=== PATIENT | male | born 1950 | race Caucasian/White ===

== ENCOUNTER → 2017-06-27 | Outpatient (CLI) | payer BC ==
[~2017-06-27] MED LIST: AMB5 PO; EZET10TA63 PO; LEVO25TA PO; LPT/40 PO; NXM/40 PO; RANI300T2 PO; SERT50TA PO; TRIA0.5C9 TOP; multvitamin PO
[2017-06-27 17:30] LABS: BASO % 0.5 %; BASO ABS # 0.03 K/uL (0-0.2); EOS % 1.6 %; EOS ABS # 0.09 K/uL (0-0.5); HEMATOCRIT 43.9 % (42-52); HEMOGLOBIN 15.1 g/dL (14.0-18.0); IG# 0.01 K/uL (0.00-0.02); LYMPH % 32.7 %; LYMPH ABS # 1.86 K/uL (1.2-3.4); MEAN CORPUSCULAR HGB CONC 34.4 g/dl (32-36); MEAN PLATELET VOLUME 9.8 fL (7.4-10.4); MONO % 8.8 %; NEUT % 56.2 %; NEUT ABS # 3.19 K/uL (1.4-6.5); PLATELET COUNT 190 K/uL (130-400); RED CELL DISTRIBUTION WIDTH CV 13.1 % (11.5-14.5); RED CELL DISTRIBUTION WIDTH SD 44.8 fL (36.4-46.3); WHITE BLOOD COUNT 5.68 K/uL (4.8-10.8)
[2017-06-27 17:47] LABS: ALT/SGPT 47 U/L (12-78); AST/SGOT 24 U/L (15-37); BLOOD UREA NITROGEN 15 mg/dl (7-18); CALCIUM 9.2 mg/dl (8.5-10.1); CARBON DIOXIDE 28 mmol/L (21-32); CREATININE 1.19 mg/dl (0.60-1.40); GLUCOSE 114 mg/dl (70-99); POTASSIUM 4.6 mmol/L (3.5-5.1); SODIUM 138 mmol/L (136-145)
[2017-06-27 17:58] LABS: ALKALINE PHOSPHATASE 81 U/L (45-117); CHOLESTEROL 133 mg/dl (0-200); LDL CHOLESTEROL CALCULATED 43 mg/dl; TOTAL PROTEIN 7.6 gm/dl (6.4-8.2)
== END | disposition home or self-care (01) ==
LOC: C.LABPBG 11:31
PROVIDERS: ATTEND Neuromusculoskeletal Medicine & OMM
DX: Z00.00 Encounter for general adult medical examination without abnormal findings (principal); E78.00 Pure hypercholesterolemia, unspecified; E03.9 Hypothyroidism, unspecified; I10 Essential (primary) hypertension

== ENCOUNTER → 2017-07-04 | Outpatient (CLI) | payer BC ==
--- NOTE | 2017-07-04 13:13 | DIAGNOSTIC IMAGING REPORT ---
RIGHT SHOULDER 3 VIEWS HISTORY: M25.511 Chronic right shoulder pain [id number] COMPARISON: None. FINDINGS: There is no fracture or dislocation. Soft tissues are unremarkable. The right clavicle is intact. IMPRESSION: No fracture or dislocation within the right shoulder. Electronically signed by: Isael Garcia M.D. 07/04/2017 1:12 PM Dictated Date/Time: 07/04/2017 1:11 PM
[2017-07-05 06:58] LABS: HEMOGLOBIN A1C 6.5 % (4.5-5.6)
== END | disposition home or self-care (01) ==
LOC: C.RADBC 12:52
PROVIDERS: ATTEND Neuromusculoskeletal Medicine & OMM
DX: M25.511 Pain in right shoulder (principal); N40.1 Benign prostatic hyperplasia with lower urinary tract symptoms; R73.09 Other abnormal glucose; E66.9 Obesity, unspecified

== ENCOUNTER 2021-02-08 20:56 | Inpatient (IN) ==
[2021-02-08] MEDS ORDERED: fentaNYL citrate 100 MCG/2 ML VIAL IV STA ×2 (21:46→23:31)
[2021-02-08] MEDS ORDERED: fentaNYL citrate 100 MCG/2 ML VIAL ONE (21:47)
[2021-02-08] MEDS ORDERED: OPTIRAY 320 100ml IV ONE (21:55)
--- NOTE | 2021-02-08 22:02 | Emergency Department Note ---
Impression & Plan Fall from ladder, Laceration of scalp, Acetabulum fracture, left, Closed pelvic fracture ED Provider Note Provider: Doroteo Rasmussen MD DATE OF SERVICE: 02/08/2021 CHIEF COMPLAINT: Fall HISTORY OF PRESENT ILLNESS: Patient is a 70-year-old gentleman history of hypothyroidism, diabetes, hypertension presenting today after a fall from a ladder. Patient states he was approximately 4-5 steps up on a ladder pulling out a nail in [place] when he suddenly and the nail pull out and he fell over onto his left side onto a rock on the ground. Denies LOC do think he might have been stunned for second. Was able to stand with some assistance was unable to walk. Complaining significant left hip pain and groin pain. Patient notes a cut to the side of his head. Denies severe headache. Denies dizziness or visual changes. Denies significant neck pain or numbness in extremities. Denies chest pain or shortness of breath. Denies nausea or vomiting. Patient states he has pain anytime he moves his left leg in the hip and groin region. Brought here by EMS. States tetanus up-to-date in the last 10 years. REVIEW OF SYSTEMS: A total of 10 review of systems was obtained and negative except as stated above in the HPI. PAST MEDICAL HISTORY: As noted above MEDICATIONS: Reviewed home medications does not include any anticoagulants or antiplatelet agents SOCIAL HISTORY: Lives at home with PHYSICAL EXAM: GENERAL: alert and oriented laying on the Ruth on his right side with some dried blood in his scalp Head: Patient with an approximately 3.5 centimeter laceration in the left temporoparietal region with no signs of foreign body. Linear in nature. No active bleeding noted. No ashton sign noted. EYES: No injection, discharge or icterus. PERRL NECK: Trachea midline. Supple. ENT: Mucous membranes pink and moist. LUNGS: Airway patent. No retractions. Breath sounds clear HEART: Regular rate and rhythm. No chest wall tenderness ABDOMEN: Soft with some tenderness in the left inguinal region. Not peritoneal. No significant bruising noted across the abdomen. SKIN: Acyanotic, warm, dry, without rashes EXTREMITIES: Without swelling, tenderness or deformity except for pain with any movement of the left hip. Minimal left trochanteric tenderness. NEUROLOGICAL: No focal deficits. No aphasia. No facial droop or slurred speech. Normal strength and tone in the extremities except limited in LLE 2/2 pain in L hip region. Sensation to gross touch normal in the upper and lower extremities. EK bpm normal sinus rhythm. No PVC or PAC. No acute ST segment elevation or depression. QTC 416. CONTINUOUS CARDIAC MONITORING: was ordered and showed a heart rate of 60-70s bpm in normal sinus rhythm 2 view left hip x-ray with 1 view pelvis x-ray: Per my interpretation no evidence of acute dislocation or obvious fracture of the left femur. Question of a possible left superior pelvic rami fracture. PDMP was checked without noted issue. GCS 15. LACERATION REPAIR: Performed by myself Patient, procedure, and site were verified immediately before the procedure. Appropriate neurovascular exam was performed to test sensation, motor function and perfusion. The skin around the wound was prepped with Betadine. Wound was irrigated with a copious amount of saline Wound was explored to its base. There was no visible foreign body in the wound. The laceration was repaired by means of a single layer closure. Skin was closed with aarti #7 Total wound length was 3.5 cm. Good hemostasis and cosmetic result. Patient tolerated the procedure well. Patient's laboratory studies and imaging reviewed. Differential includes Fracture, dislocation, contusion, intra-abdominal, pneumothorax, intrathoracic, intracranial, neurologic, compartment syndrome, rhabdomyolysis, as well as other pathologies. IMPRESSION/MEDICAL DECISION MAKING: Patient with a laceration to the left temporoparietal region. States his tetanus is up-to-date. Irrigated with saline after some Betadine. Patient required aarti to close this wound and no evidence of foreign body. Patient with significant pain to left hip and groin. Given some fentanyl for pain. Patient was taken off of the Ruth. Patient sent for CT scans given mechanism. X-ray of the pelvis and hip obtained without obvious hip fracture noted per my interpretation. Basic blood work obtained without significant abnormality. Given significant pain a CT of the hip was obtained as well. Stat read reads as below. Patient urinated here without evidence of blood and I doubt acute bladder injury given this. Patient given additional fentanyl for pain and later morphine. Scalp laceration closed as above. CT the head, cervical spine, and chest without significant findings. CT abdomen and pelvis and CT of the L hip show evidence of acetabular fracture with pelvic fractures. Some small associated hematoma in this area. Patient is urinated without issue and has no blood noted in the sample from thi s. Discussed with Dr. Neil of orthopedics (patient requested Dr. Fischer's group) regarding the findings. Patient is neurovascular intact in the left lower extremity. Patient does not show evidence of shock at this time. The orthopedist reviewed the images and believe nonoperative management would be appropriate here. Patient to be nonweightbearing on the left leg at this time. Patient may recover in 6 to 8 weeks. PT and OT evaluations and orthopedic consultation can be obtained while observed here. Given his pain control and limited mobility at this time believe the patient does require admission. Discussed with the hospitalist team. Serial H&H's can be followed. DIAGNOSIS: Left acetabular fracture, pelvic fracture, fall, scalp laceration DISPOSITION: Hospitalist will evaluate Patient was agreeable with this plan. Preliminary Findings Only See Final Report For Complete Findings CT LEFT HIP: Mildly displaced acute comminuted fracture of the anterior, superior and medial left acetabulum with extension to the lateral aspect of the left superior pubic ramus. Associated fracture of the left inferior pubic ramus. Fracture of the anterior margin of the left sacral ally adjacent to but not involving the sacroiliac joint. The left femur is intact. No dislocation. Infiltration/hemorrhage associated with the fractures including left pelvic sidewall hemorrhage extending into the lower pelvis. Hemorrhage is adjacent to the urinary bladder which is otherwise unremarkable. Radiologist: Mendel Ortiz M.D. Study ready at 22:54 and initial results transmitted at 23:06 Preliminary Findings Only See Final Report For Complete Findings CT HEAD: No acute post-traumatic intracranial abnormality. No acute hemorrhage or abnormal extra-axial fluid collection. No acute stroke. No midline shift. No fracture. Radiologist: Mendel Ortiz M.D. Study ready at 22:54 and initial results transmitted at 22:59 Preliminary Findings Only See Final Report For Complete Findings CT C SPINE: Reversal of the normal cervical lordosis, most commonly seen with muscle spasm or positioning. No fracture or subluxation. Maintenance of height of the vertebral bodies. Multilevel degenerative changes, greatest at C4-5 and C6-7. Prevertebral soft tissues unremarkable. Radiologist: Mendel Ortiz M.D. Study ready at 22:56 and initial results transmitted at 23:02 Preliminary Findings Only See Final Report For Complete Findings CT CHEST With Contrast: No acute post-traumatic abnormality. Mediastinal vascular structures unremarkable. Heart normal in size. No pericardial fluid or thickening. Minimal dependent atelectasis. No infiltrate. No pleural effusion. No pneumothorax. No fracture. Radiologist: Mendel Ortiz M.D. Study ready at 22:57 and initial results transmitted at 23:11 Preliminary Findings Only See Final Report For Complete Findings CT ABDOMEN & PELVIS With Contrast: Lateral pelvic subcutaneous infiltration/bruising with underlying left pelvic fractures involving sacral ala, superior and inferior pubic rami extending into the anterior, superior medial left acetabular wall, see separate CT left hip report. Associated left pelvic sidewall hemorrhage adjacent to the lateral aspect urinary bladder. No contrast material within urinary bladder of the bladder itself appears grossly intact. Liver, gallbladder, pancreas, spleen and kidneys unremarkable. Bowel and mesentery unremarkable. No bowel obstruction or ileus. No free fluid or intraperitoneal gas. Atherosclerotic vascular calcifications. Radiologist: Mendel Ortiz M.D. Study ready at 22:57 and initial results transmitted at 23:20 Past Med/Surg History Medical History Allergic rhinitis Anxiety Apnea Arthritis BPH with obstruction/lower urinary tract symptoms Chronic bilateral low back pain without sciatica Chronic right shoulder pain Chronic sinusitis Depression Gastric ulcer GERD without esophagitis Gout Hypercholesterolemia Hypertension Hypothyroidism Obesity ESTEFANÍA (obstructive sleep apnea) Perforated nasal septum Restless legs syndrome Sensorineural hearing loss (SNHL) of both ears Sleep disturbances Surgical History H/O total knee replacement H/O uvulectomy S/P carpal tunnel release S/P knee surgery S/P lateral meniscal repair S/P shoulder surgery S/P sinus surgery S/P tonsillectomy and adenoidectomy Family History Mother Colorectal cancer Anxiety Father Myocardial infarction Cardiac disorder Hypertension Denies family history of Ovarian cancer Prostate cancer Adverse anesthesia outcome Breast cancer Bleeding disorder Social History Smoking Status: Never smoker Tobacco Type: Cigarettes Age Started Using Tobacco: 17; Age Quit Using Tobacco: 48; packs per day: 0.5; Years Smoked: 31; Number of Years Since Quit: 20; Second Hand Exposure: Yes; Hx Alcohol Use: Yes Alcohol type: beer and hard liquor Alcohol Intake Frequency: Monthly or Less Hx Substance Use: No Preferred Language: French Communication Ability: Effective marital status: Current Living Situation: Spouse current occupational status: retired Feels Safe at Home: Yes Childhood Exposure to Second-Hand Smoke: Yes Dental Care, Regularly: Yes Physical Activity Frequency: Does not Exercise Seatbelt Use: sometimes Sunscreen Use: No Allergies Allergies Allergy/AdvReac Type Severity Reaction Status Date / Time No Known Drug Allergies Allergy Unknown Unknown Verified 02/08/21 21:43 Home Meds Home Medications Medication Instructions Recorded Confirmed multivitamin-ferrous 1 tab PO DAILY 06/08/18 02/08/21 fumarate-folic acid 18 mg-400 mcg tablet (Multi-Day with Iron) Previous Rx's Medication Instructions Recorded atorvastatin 20 mg tablet 20 mg PO DAILY #90 tab 12/13/19 levothyroxine 25 mcg tablet 25 mcg PO DAILY #90 tab 12/13/19 zolpidem 5 mg tablet 5 mg PO HS PRN #90 tab 03/12/20 BiPap Supplies See Rx Instructions .ROUTE 04/16/20 .COMPLEX #1 ea ezetimibe 10 mg tablet 10 mg PO DAILY #90 tab 08/20/20 azelastine 137 mcg (0.1 %) nasal 2 spray INTRANASAL BID #3 ea 11/05/20 spray aerosol triamcinolone acetonide 55 mcg 2 spray INTRANASAL DAILY #3 btl 11/05/20 nasal spray aerosol (Nasacort) esomeprazole magnesium 40 mg 40 mg PO DAILY #90 cap 11/10/20 capsule,delayed release sertraline 50 mg tablet 50 mg PO DAILY #90 tab 11/10/20 losartan 50 mg tablet 50 mg PO DAILY #90 tab 11/20/20 metformin 750 mg tablet,extended 750 mg PO QPM #90 tab 11/20/20 release 24 hr tamsulosin 0.4 mg capsule 0.8 mg PO DAILY #180 cap 11/20/20 Results & Data (ED) Vital Signs Vital Signs - 24 hr 02/08/21 21:01 02/08/21 21:03 02/08/21 21:09 Temperature 36.8 C Temperature Source Oral Pulse Rate 71 70 Pulse Rate [Radial] Pulse Rate from SpO2 Sensor 75 Pulse Rhythm Respiratory Rate 18 20 12 Respiratory Depth Normal Normal Blood Pressure 153/75 H Blood Pressure [Left Arm] Blood Pressure Mean 101 Blood Pressure Mean [Left Arm] Pulse Oximetry 100 99 Oxygen Delivery Method Room Air Sepsis Recent Fever Within 48 Hours No Sepsis New/Unexplained Change in Mental Status No Sepsis Action Taken by Nursing No Action Required 02/08/21 21:30 02/08/21 21:44 02/08/21 23:42 Temperature Temperature Source Pulse Rate 92 H Pulse Rate [Radial] 64 Pulse Rate from SpO2 Sensor 86 Pulse Rhythm Regular Respiratory Rate 16 16 Respiratory Depth Blood Pressure 147/72 H Blood Pressure [Left Arm] 160/83 H Blood Pressure Mean 97 Blood Pressure Mean [Left Arm] 108 Pulse Oximetry 96 99 Oxygen Delivery Method Room Air Room Air Sepsis Recent Fever Within 48 Hours Sepsis New/Unexplained Change in Mental Status Sepsis Action Taken by Nursing Laboratory Data Result diagrams: 02/08/21 23:28 02/08/21 23:28 Lab Results 02/08/21 02/08/21 02/08/21 Range/Units 23:07 23:28 23:28 WBC 13.20 H (4.8-10.8) K/uL RBC 4.44 L (4.7-6.1) M/uL Hgb 14.4 (14.0-18.0) g/dL Hct 41.2 L (42-52) % MCV 92.8 (80-100) fL MCH 32.4 (25-34) pg MCHC 35.0 (32-36) g/dL RDW Std Deviation 45.6 (36.4-46.3) fL RDW Coeff of Helen 13.5 (11.5-14.5) % Plt Count 187 (130-400) K/uL MPV 9.5 (7.4-10.4) fL Immature Gran % (Auto) 0.2 % Neut % (Auto) 86.9 % Lymph % (Auto) 6.1 % [place] % (Auto) 6.7 % Eos % (Auto) 0.0 % Baso % (Auto) 0.1 % Neut # (Auto) 11.47 H (1.4-6.5) K/uL Lymph # (Auto) 0.81 L (1.2-3.4) K/uL [place] # (Auto) 0.88 H (0.11-0.59) K/uL Eos # (Auto) 0.00 (0-0.5) K/uL Baso # (Auto) 0.01 (0-0.2) K/uL Immature Gran # (Auto) 0.03 H (0.00-0.02) K/uL PT (9.0-12.0) Seconds INR (0.9-1.1) Sodium 141 (136-145) mmol/L Potassium 4.1 (3.5-5.1) mmol/L Chloride 112 H (98-107) mmol/L Carbon Dioxide 22 (21-32) mmol/L Anion Gap 7.0 (3-11) BUN 23 H (7-18) mg/dl Creatinine 1.32 (0.6-1.4) mg/dl Est Cr Clr Drug Dosing 69.1 ml/min Est GFR ( Amer) 63.3 ml/min Est GFR (Non-Af Amer) 54.7 ml/min BUN/Creatinine Ratio 17.1 (10-20) Glucose 131 H (70-99) mg/dl Calcium 9.1 (8.5-10.1) mg/dl Total Bilirubin 0.8 (0.2-1) mg/dl AST 26 (15-37) U/L ALT 31 (12-78) U/L Alkaline Phosphatase 66 (45-117) U/L Total Protein 7.4 (6.4-8.2) gm/dl Albumin 4.2 (3.4-5.0) gm/dl Globulin 3.2 (2.5-4.0) gm/dl Albumin/Globulin Ratio 1.3 (0.9-2) Urine Color Yellow Urine Appearance Clear (Clear) Urine pH 5.0 (4.5-7.5) Ur Specific [place] 1.032 H (1.000-1.030) Urine Protein Negative (Negative) Urine Glucose (UA) Negative (Negative) Urine Ketones Negative (Negative) Urine Blood Negative (Negative) Urine Nitrite Negative (Negative) Urine Bilirubin Negative (Negative) Urine Urobilinogen Negative (Negative) Ur Leukocyte Esterase Negative (Negative) COVID-19 Eval Order Blood Type Antibody Screen 02/08/21 02/08/21 02/09/21 Range/Units 23:28 23:28 00:06 WBC (4.8-10.8) K/uL RBC (4.7-6.1) M/uL Hgb (14.0-18.0) g/dL Hct (42-52) % MCV (80-100) fL MCH (25-34) pg MCHC (32-36) g/dL RDW Std Deviation (36.4-46.3) fL RDW Coeff of Helen (11.5-14.5) % Plt Count (130-400) K/uL MPV (7.4-10.4) fL Immature Gran % (Auto) % Neut % (Auto) % Lymph % (Auto) % [place] % (Auto) % Eos % (Auto) % Baso % (Auto) % Neut # (Auto) (1.4-6.5) K/uL Lymph # (Auto) (1.2-3.4) K/uL [place] # (Auto) (0.11-0.59) K/uL Eos # (Auto) (0-0.5) K/uL Baso # (Auto) (0-0.2) K/uL Immature Gran # (Auto) (0.00-0.02) K/uL PT 10.3 (9.0-12.0) Seconds INR 1.0 (0.9-1.1) Sodium (136-145) mmol/L Potassium (3.5-5.1) mmol/L Chloride (98-107) mmol/L Carbon Dioxide (21-32) mmol/L Anion Gap (3-11) BUN (7-18) mg/dl Creatinine (0.6-1.4) mg/dl Est Cr Clr Drug Dosing ml/min Est GFR ( Amer) ml/min Est GFR (Non-Af Amer) ml/min BUN/Creatinine Ratio (10-20) Glucose (70-99) mg/dl Calcium (8.5-10.1) mg/dl Total Bilirubin (0.2-1) mg/dl AST (15-37) U/L ALT (12-78) U/L Alkaline Phosphatase (45-117) U/L Total Protein (6.4-8.2) gm/dl Albumin (3.4-5.0) gm/dl Globulin (2.5-4.0) gm/dl Albumin/Globulin Ratio (0.9-2) Urine Color Urine Appearance (Clear) Urine pH (4.5-7.5) Ur Specific [place] (1.000-1.030) Urine Protein (Negative) Urine Glucose (UA) (Negative) Urine Ketones (Negative) Urine Blood (Negative) Urine Nitrite (Negative) Urine Bilirubin (Negative) Urine Urobilinogen (Negative) Ur Leukocyte Esterase (Negative) COVID-19 Eval Order Covid19 at [facility] Blood Type A Negative Antibody Screen NEGATIVE Administered Medications Discontinued Medications Fentanyl Citrate (Fentanyl Citrate 100 Mcg/2 Ml Vial) 100 mcg IV NOW STA Stop: 02/08/21 21:47 Last Admin: 02/08/21 21:49 Dose: 100 mcg Documented by: [id number] Fentanyl Citrate (Fentanyl Citrate 100 Mcg/2 Ml Vial) Confirm Administered Dose 100 mcg .ROUTE .STK-MED ONE Stop: 02/08/21 21:48 Last Admin: 02/08/21 21:49 Dose: Not Given Documented by: [id number] Fentanyl Citrate (Fentanyl Citrate 100 Mcg/2 Ml Vial) 100 mcg IV NOW STA Stop: 02/08/21 23:32 Last Admin: 02/08/21 23:39 Dose: 100 mcg Documented by: [id number] Ioversol (Optiray 320 100ml) 94 ml IV ONCE ONE Stop: 02/08/21 21:56 Last Admin: 02/08/21 21:56 Dose: 1 ml Documented by: [id number] Discharge Plan Visit Data Chief Complaint: Fall Stated Complaint: FALL FROM LADDER/HIP PAIN, HIT HEAD LAC ED Provider: Doroteo Rasmussen Discharge Problem: Fall from ladder, Laceration of scalp, Acetabulum fracture, left, Closed pelvic fracture Patient Disposition: Being Evaluated by Hospitalist Forms Stand Alone Forms: [facility] ePrep Prescriptions Prescriptions: No Action atorvastatin 20 mg tablet 20 mg PO DAILY Qty: 90 RF: 1 levothyroxine 25 mcg tablet 25 mcg PO DAILY Qty: 90 RF: 3 zolpidem 5 mg tablet 5 mg PO HS PRN (Reason: insomnia) Qty: 90 RF: 0 ezetimibe 10 mg tablet 10 mg PO DAILY Qty: 90 RF: 1 esomeprazole magnesium 40 mg capsule,delayed release(DR/EC) 40 mg PO DAILY Qty: 90 RF: 1 sertraline 50 mg tablet 50 mg PO DAILY Qty: 90 RF: 1 losartan 50 mg tablet 50 mg PO DAILY Qty: 90 RF: 1 metformin 750 mg tablet extended release 24 hr 750 mg PO QPM Qty: 90 RF: 3 tamsulosin 0.4 mg capsule 0.8 mg PO DAILY Qty: 180 RF: 1 BiPap Supplies Misc See Rx Instructions .ROUTE .COMPLEX Qty: 1 RF: 0 triamcinolone acetonide [Nasacort] 55 mcg aerosol,spray 2 spray intranasal DAILY Qty: 3 RF: 5 azelastine 137 mcg (0.1 %) aerosol,spray 2 spray INTRANASAL BID Qty: 3 RF: 3 Multi-Day with Iron 18-400 mg-mcg Tablet 1 tab PO DAILY RF: 0 Referrals Referrals: Jaren Brand DO [Primary Care Provider] - Discharge Problem: Fall from ladder Qualifiers: Encounter type: initial encounter Qualified Code(s): W11.XXXA - Fall on and from ladder, initial encounter Laceration of scalp Qualifiers: Encounter type: initial encounter Qualified Code(s): S01.01XA - Laceration without foreign body of scalp, initial encounter Acetabulum fracture, left Qualifiers: Encounter type: initial encounter Sublocation of acetabulum: unspecified portion of acetabulum Fracture type: closed Fracture alignment: displaced Qualified Code(s): S32.402A - Unspecified fracture of left acetabulum, initial encounter for closed fracture Closed pelvic fracture Qualifiers: Encounter type: initial encounter Pelvic bone location: multiple parts Fracture alignment: without disruption of pelvic ring Qualified Code(s): S32.82XA - Multiple fractures of pelvis without disruption of pelvic ring, initial encou nter for closed fracture
[2021-02-08 23:15] LABS: Appearance Urine Clear (Clear); Bilirubin Urine Negative (Negative); Blood Urine Negative (Negative); Color Urine Yellow; Glucose Urine UA Negative (Negative); Ketones Urine Negative (Negative); Leukocyte Esterase Urine Negative (Negative); Nitrite Urine Negative (Negative); Protein Urine Negative (Negative); Specific Gravity Urine 1.032 (1.000-1.030); Urobilinogen Urine Negative (Negative)
[2021-02-08 23:47] LABS: Basophils # (auto) 0.01 K/uL (0-0.2); Basophils % (auto) 0.1 %; Hematocrit (blood only) 41.2 % (42-52); Hemoglobin 14.4 g/dL (14.0-18.0); Immature Granulocytes # (auto) 0.03 K/uL (0.00-0.02); Immature Granulocytes % (auto) 0.2 %; Lymphocytes # (auto) 0.81 K/uL (1.2-3.4); Lymphocytes % (auto) 6.1 %; Mean Corpuscular Hemoglobin 32.4 pg (25-34); Mean Corpuscular Volume 92.8 fL (80-100); Mean Platelet Volume 9.5 fL (7.4-10.4); Monocytes # (auto) 0.88 K/uL (0.11-0.59); Monocytes % (auto) 6.7 %; Neutrophils # (auto) 11.47 K/uL (1.4-6.5); Neutrophils % (auto) 86.9 %; Platelet Count 187 K/uL (130-400); RDW Coefficient of Variation 13.5 % (11.5-14.5); RDW Standard Deviation 45.6 fL (36.4-46.3); Red Blood Count 4.44 M/uL (4.7-6.1)
[2021-02-08] MEDS ORDERED: SODIUM CHLORIDE 0.9% 1000ML 1,000 ML IV ONE (23:50)
[2021-02-08 23:52] LABS: Prothrombin Time 10.3 Seconds (9.0-12.0)
--- NOTE | 2021-02-08 23:55 | Orthopedic Consultation ---
Date of Service February 08, 2021 Assessment & Plan (1) Closed left acetabular fracture: (2) Fracture of sacrum: 70 yo M ESTEFANÍA, DM, Obesity fall today from height resulting in minimally displaced left acetabular and sacral fractures. Acceptable alignment for nonsurgical management. - Discussed diagnosis, prognosis, and treatment expectations. Patient concerned about going home with split-entry and many stairs. - Bedrest until pain controlled and PT/OT mobilization: Flat foot WBing to LLE for 6-8 weeks. - Will need 6 weeks of VTE ppx. Will start Lovenox daily. May transition to ASA 325mg when mobilizes and transitions to outpatient. Dispo: pending pain management with oral medications, PT/OT evals, and decision on next level of care. Plan for repeat xrays in the outpatient ortho clinic ([facility]) in 2-3 weeks and again at 6 weeks before advancement with WBing. Call with questions. History of Present Illness Reason for Consultation: Pelvic and acetabular fractures . Requesting Physician: . Attending Physician: Tip Neil MD 70 yo M PMHx signif for OA, ESTEFAÍNA, DM2, L TKA ([facility]) admitted from ER after fall from height off a ladder. He landed directly onto his left hip. 20 minutes until he could stand, but could not bear weight. ER workup showed pelvic ring fractures with extension in to acetabulum. No hx of treatment for OA of the L hip. Reports pain is located deep in Left groin and radiates with any movement of his lower extremities. Denies numbness and tingling in BLE. No prior trauma hx. Allergies Allergy/AdvReac Type Severity Reaction Status Date / Time No Known Drug Allergies Allergy Unknown Unknown Verified 02/08/21 21:43 Home Medications Medication Instructions Recorded Confirmed Type multivitamin-ferrous 1 tab PO DAILY 06/08/18 02/08/21 History fumarate-folic acid 18 mg-400 mcg tablet (Multi-Day with Iron) atorvastatin 20 mg tablet 20 mg PO DAILY #90 tab 12/13/19 02/08/21 Rx levothyroxine 25 mcg tablet 25 mcg PO DAILY #90 tab 12/13/19 02/08/21 Rx zolpidem 5 mg tablet 5 mg PO HS PRN #90 tab 03/12/20 02/08/21 Rx BiPap Supplies See Rx Instructions .ROUTE 04/16/20 02/08/21 Rx .COMPLEX #1 ea ezetimibe 10 mg tablet 10 mg PO DAILY #90 tab 08/20/20 02/08/21 Rx azelastine 137 mcg (0.1 %) nasal 2 spray INTRANASAL BID #3 ea 11/05/20 02/08/21 Rx spray aerosol triamcinolone acetonide 55 mcg 2 spray INTRANASAL DAILY #3 btl 11/05/20 02/08/21 Rx nasal spray aerosol (Nasacort) esomeprazole magnesium 40 mg 40 mg PO DAILY #90 cap 11/10/20 02/08/21 Rx capsule,delayed release sertraline 50 mg tablet 50 mg PO DAILY #90 tab 11/10/20 02/08/21 Rx losartan 50 mg tablet 50 mg PO DAILY #90 tab 11/20/20 02/08/21 Rx metformin 750 mg tablet,extended 750 mg PO QPM #90 tab 11/20/20 02/08/21 Rx release 24 hr tamsulosin 0.4 mg capsule 0.8 mg PO DAILY #180 cap 11/20/20 02/08/21 Rx Past Med/Surg History Medical History Allergic rhinitis Anxiety Apnea Arthritis BPH with obstruction/lower urinary tract symptoms Chronic bilateral low back pain without sciatica Chronic right shoulder pain Chronic sinusitis Depression Gastric ulcer GERD without esophagitis Gout Hypercholesterolemia Hypertension Hypothyroidism Obesity ESTEFANÍA (obstructive sleep apnea) Perforated nasal septum Restless legs syndrome Sensorineural hearing loss (SNHL) of both ears Sleep disturbances Surgical History H/O total knee replacement H/O uvulectomy S/P carpal tunnel release S/P knee surgery S/P lateral meniscal repair S/P shoulder surgery S/P sinus surgery S/P tonsillectomy and adenoidectomy Family History Mother Colorectal cancer Anxiety Father Myocardial infarction Cardiac disorder Hypertension Denies family history of Ovarian cancer Prostate cancer Adverse anesthesia outcome Breast cancer Bleeding disorder Social History Smoking Status: Former smoker Tobacco Type: Cigarettes Age Started Using Tobacco: 17; Age Quit Using Tobacco: 48; packs per day: 0.5; Years Smoked: 31; Number of Years Since Quit: 20; Second Hand Exposure: Yes; Hx Alcohol Use: Yes Alcohol type: beer and hard liquor Alcohol Intake Frequency: Monthly or Less Hx Substance Use: No Preferred Language: Latvian Communication Ability: Effective Finish Painter Required: No marital status: Current Living Situation: Spouse current occupational status: retired Feels Safe at Home: Yes Childhood Exposure to Second-Hand Smoke: Yes Dental Care, Regularly: Yes Physical Activity Frequency: Does not Exercise Seatbelt Use: sometimes Sunscreen Use: No Assistive Devices: CPAP Review of Systems All systems reviewed & are unremarkable except as noted in HPI & below. Physical Exam RLE: atraumatic in appearance. +DF/PF/EHL. DNVI. LLE: No evidence of bruising or skin disruption about the hip. Irritable with log roll. Good quad set. Nontender femur, knee tibia. DF/PF/EHL. DNVI. BUEs: FAROM without pain. Constitutional WD/WN, vitals as above + obese; no acute distress Respiratory normal respiratory effort; no respiratory distress and no labored breathing Skin no rashes, warm and dry Neurologic moves all extremities and awake Psychiatric A+Ox3, euthymic affect Results & Data Results & Data Laboratory Results . H & H 02/08/21 Range/Units 23:28 Hgb 14.4 (14.0-18.0) g/dL Hct 41.2 L (42-52) % Coagulation 02/08/21 Range/Units 23:28 INR 1.0 (0.9-1.1) Diagnostic Findings Radiographs: Intact superior acetabular dome, suggestion of pubic rami fracture, no acute findings to proximal femur CT L hip: Minimally displaced fractures involving the pubic rami, anterior column propagating to anterior wall and anterior articular surface without significant displacement. Stable joint. Minimally displaced sacral fracture. PG Care Time/CCT Total # of Minutes Spent Total Time Spent with Patient: Total time spent is greater than 50% in coordination of care (as documented) at patient's floor/unit and/or counseling patient: Coding Level of Care Code 28567 Inpt Consult Level 4 Diagnoses Closed left acetabular fracture S32.402A Fracture of sacrum S32.10XA
[2021-02-08] MEDS ORDERED: MoRPHine SULFATE 4 MG/ML 1 ML CARP\\VIAL IV STA (23:58)
[2021-02-09 00:06] LABS: Albumin Level 4.2 gm/dl (3.4-5.0); BUN Creatinine Ratio 17.1 (10-20); Calcium 9.1 mg/dl (8.5-10.1); Creatinine Clr Calc Pharmacy 69.1 ml/min; Est GFR (African American) 63.3 ml/min; Est GFR (Non-African American) 54.7 ml/min; Potassium 4.1 mmol/L (3.5-5.1)
[2021-02-09 00:09] LABS: Albumin Globulin Ratio 1.3 (0.9-2); Bilirubin,Total 0.8 mg/dl (0.2-1); Globulin 3.2 gm/dl (2.5-4.0); Total Protein 7.4 gm/dl (6.4-8.2)
--- NOTE | 2021-02-09 01:22 | History & Physical Report ---
Date of Service February 09, 2021 Assessment & Plan (1) Fall from ladder: Plan: Fall from ladder/closed pelvic fracture/fracture of sacrum/closed left acetabular fracture- Admit to medical surgical floor Ward 5/325, 1 p.o. every 6 hours as needed moderate pain Ward 5/325, 2 p.o. every 6 hours as needed severe pain Dilaudid 0.25 mg IV every 3 hours as needed moderate pain Dilaudid 0.5 mg IV every 3 hours as needed severe pain Consult orthopedic surgery Dr. Neil, aware of patient Consult PT/OT, once pain is adequately controlled (2) Closed pelvic fracture: Plan: See above (3) Fracture of sacrum: Plan: See above (4) Closed left acetabular fracture: Plan: See above (5) Type 2 diabetes mellitus: Plan: Placed on Accu-Cheks before meals and at bedtime with NovoLog coverage per scale Hold Metformin (6) Hypothyroidism: Plan: Continue levothyroxine (7) Hypertension: Plan: Continue losartan (8) Hypercholesterolemia: Plan: Continue Zetia and atorvastatin (9) GERD without esophagitis: Plan: Continue esomeprazole/pantoprazole (10) BPH with obstruction/lower urinary tract symptoms: Plan: Continue tamsulosin (11) ESTEFANÍA (obstructive sleep apnea): Plan: CPAP at bedtime as needed History of Present Illness Chief Complaint: The patient presents to the emergency department after falling from the 4-5 steps up on a ladder and landing on his left side onto a rock on the ground, without loss of consciousness Primary Care Provider: Jaren Brand DO The patient is a 70-year-old male with a past medical history including RLS, diabetes mellitus type 2, sleep disturbances, SNHL of both ears, obesity, ESTEFANÍA, hypothyroidism, hypertension, hypercholesterolemia, GERD without esophagitis, BPH with LUTS, anxiety, gout and gastric ulcer. He presents after fall as noted above, immediately reporting left hip and groin pain, and was unable to walk without assistance. He did have a cut on the side of his head, but denied any headache, neck ache or vision changes. Allergies Allergy/AdvReac Type Severity Reaction Status Date / Time No Known Drug Allergies Allergy Unknown Unknown Verified 02/08/21 21:43 Home Medications Medication Instructions Recorded Confirmed Type multivitamin-ferrous 1 tab PO DAILY 06/08/18 02/08/21 History fumarate-folic acid 18 mg-400 mcg tablet (Multi-Day with Iron) atorvastatin 20 mg tablet 20 mg PO DAILY #90 tab 12/13/19 02/08/21 Rx levothyroxine 25 mcg tablet 25 mcg PO DAILY #90 tab 12/13/19 02/08/21 Rx zolpidem 5 mg tablet 5 mg PO HS PRN #90 tab 03/12/20 02/08/21 Rx BiPap Supplies See Rx Instructions .ROUTE 04/16/20 02/08/21 Rx .COMPLEX #1 ea ezetimibe 10 mg tablet 10 mg PO DAILY #90 tab 08/20/20 02/08/21 Rx azelastine 137 mcg (0.1 %) nasal 2 spray INTRANASAL BID #3 ea 11/05/20 02/08/21 Rx spray aerosol triamcinolone acetonide 55 mcg 2 spray INTRANASAL DAILY #3 btl 11/05/20 02/08/21 Rx nasal spray aerosol (Nasacort) esomeprazole magnesium 40 mg 40 mg PO DAILY #90 cap 11/10/20 02/08/21 Rx capsule,delayed release sertraline 50 mg tablet 50 mg PO DAILY #90 tab 11/10/20 02/08/21 Rx losartan 50 mg tablet 50 mg PO DAILY #90 tab 11/20/20 02/08/21 Rx metformin 750 mg tablet,extended 750 mg PO QPM #90 tab 11/20/20 02/08/21 Rx release 24 hr tamsulosin 0.4 mg capsule 0.8 mg PO DAILY #180 cap 11/20/20 02/08/21 Rx Past Med/Surg History Medical History Allergic rhinitis Anxiety Apnea Arthritis BPH with obstruction/lower urinary tract symptoms Chronic bilateral low back pain without sciatica Chronic right shoulder pain Chronic sinusitis Depression Gastric ulcer GERD without esophagitis Gout Hypercholesterolemia Hypertension Hypothyroidism Obesity ESTEFANÍA (obstructive sleep apnea) Perforated nasal septum Restless legs syndrome Sensorineural hearing loss (SNHL) of both ears Sleep disturbances Surgical History H/O total knee replacement H/O uvulectomy S/P carpal tunnel release S/P knee surgery S/P lateral meniscal repair S/P shoulder surgery S/P sinus surgery S/P tonsillectomy and adenoidectomy Family History Mother Colorectal cancer Anxiety Father Myocardial infarction Cardiac disorder Hypertension Denies family history of Ovarian cancer Prostate cancer Adverse anesthesia outcome Breast cancer Bleeding disorder Social History Smoking Status: Former smoker Tobacco Type: Cigarettes Age Started Using Tobacco: 17; Age Quit Using Tobacco: 48; packs per day: 0.5; Years Smoked: 31; Number of Years Since Quit: 20; Second Hand Exposure: Yes; Do You Dip or Chew Tobacco: No; Hx Alcohol Use: Yes Alcohol type: beer and hard liquor Alcohol Intake Frequency: Monthly or Less Hx Substance Use: No Preferred Language: Cape Verdean Communication Ability: Effective 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 marital status: Current Living Situation: Spouse current occupational status: retired Other Information That Helps Us Care for You: No Feels Safe at Home: Yes Safety Concerns: Feels Safe At This Time Childhood Exposure to Second-Hand Smoke: Yes Dental Care, Regularly: Yes Physical Activity Frequency: Does not Exercise Seatbelt Use: sometimes Sunscreen Use: No Assistive Devices: Glasses Review of Systems Review of Systems: The patient denies chest pain, palpitations, shortness of breath, dyspnea on exertion, cough, lower extremity swelling, sore throat, fevers, chills, sweats, weight change, fatigue, nausea, vomiting, diarrhea , constipation, abdominal pain, pelvic pain, blood in urine or stool, dysuria, urinary frequency or urgency, lightheadedness, dizziness, headache, memory loss, loss of consciousness, rash, focal or generalized weakness, numbness or tingling in arms, neck pain, or night sweats. The review of systems is otherwise negative other than for that already noted above, and at least 10 systems have been reviewed. Physical Exam Physical Exam: The patient is awake, alert and oriented 3, well developed and well nourished, normocephalic and atraumatic, lying in bed and in no acute distress as long as he lays still HEENT--PERRL, EOMI, mucous membranes and oropharynx Normal. Neck--supple. No JVD. No bruits. Thyroid normal, trachea midline, no adenopathy. Heart--normal S1 and S2. No murmurs, rubs or gallops. Lungs--clear bilaterally, no respiratory distress, no accessory muscle use. Abdomen--normal bowel sounds and soft. Nontender. Nondistended. Obesity. Extremities--no cyanosis or clubbing. No edema. Dermatologic--ecchymosis over left pelvis Neurologic--cranial nerves II through XII grossly intact. Rheumatologic-- Limited exam due to pain Psychiatric--normal affect. Results & Data Results & Data ([facility]) Vital Signs (Past 12 Hours) Vital Signs Temp Pulse Pulse Resp BP BP Pulse Ox 02/08/21 23:42 64 16 160/83 H 99 02/08/21 21:30 92 H 16 147/72 H 96 02/08/21 21:09 70 12 153/75 H 99 02/08/21 21:03 98.2 F 71 20 100 02/08/21 21:01 18 Laboratory Results Laboratory Results WBC 13.20 K/uL (4.8-10.8) H 02/08/21 23:28 RBC 4.44 M/uL (4.7-6.1) L 02/08/21 23:28 Hgb 14.4 g/dL (14.0-18.0) 02/08/21 23:28 Hct 41.2 % (42-52) L 02/08/21 23:28 MCV 92.8 fL (80-100) 02/08/21 23:28 MCH 32.4 pg (25-34) 02/08/21 23: MCHC 35.0 g/dL (32-36) 02/08/21 23:28 RDW Std Deviation 45.6 fL (36.4-46.3) 02/08/21 23:28 RDW Coeff of Helen 13.5 % (11.5-14.5) 02/08/21 23:28 Plt Count 187 K/uL (130-400) 02/08/21 23:28 MPV 9.5 fL (7.4-10.4) 02/08/21: Immature Gran % (Auto) 0.2 % 02/08/21: Neut % (Auto) 86.9 % 02/08/21 23: Lymph % (Auto) 6.1 % 02/08/21: [place] % (Auto) 6.7 % 02/08/21 23:28 Eos % (Auto) 0.0 % 02/08/21 23:28 Baso % (Auto) 0.1 % 02/08/21 23: Neut # (Auto) 11.47 K/uL (1.4-6.5) H 02/08/21 23:28 Lymph # (Auto) 0.81 K/uL (1.2-3.4) L 02/08/21 23: [place] # (Auto) 0.88 K/uL (0.11-0.59) H 02/08/21 23:28 Eos # (Auto) 0.00 K/uL (0-0.5) 02/08/21 23: Baso # (Auto) 0.01 K/uL (0-0.2) 02/08/21: Immature Gran # (Auto) 0.03 K/uL (0.00-0.02) H 02/08/21 23: PT 10.3 Seconds (9.0-12.0) 02/08/21 23: INR 1.0 (0.9-1.1) 02/08/21 23: Sodium 141 mmol/L (136-145) 02/08/21 23: Potassium 4.1 mmol/L (3.5-5.1) 02/08/21: Chloride 112 mmol/L (98-107) H 02/08/21 23: Carbon Dioxide 22 mmol/L (21-32) 02/08/21 23: Anion Gap 7.0 (3-11) 02/08/21 23: BUN 23 mg/dl (7-18) H 02/08/21 23: Creatinine 1.32 mg/dl (0.6-1.4) 02/08/21 23:28 Est Cr Clr Drug Dosing 69.1 ml/min 02/08/21 23:28 Est GFR ( Amer) 63.3 ml/min 02/08/21 23: Est GFR (Non-Af Amer) 54.7 ml/min 02/08/21 23: BUN/Creatinine Ratio 17.1 (10-20) 02/08/21 23: Glucose 131 mg/dl (70-99) H 02/08/21 23:28 POC Glucose 133 mg/dl (70-99) H 02/09/21 02:09 Calcium 9.1 mg/dl (8.5-10.1) 02/08/21 23:28 Total Bilirubin 0.8 mg/dl (0.2-1) 02/08/21 23:28 AST 26 U/L (15-37) 02/08/21 23:28 ALT 31 U/L (12-78) 02/08/21 23:28 Alkaline Phosphatase 66 U/L (45-117) 02/08/21 23:28 Total Protein 7.4 gm/dl (6.4-8.2) 02/08/21 23:28 Albumin 4.2 gm/dl (3.4-5.0) 02/08/21 23:28 Globulin 3.2 gm/dl (2.5-4.0) 02/08/21 23:28 Albumin/Globulin Ratio 1.3 (0.9-2) 02/08/21 23:28 Urine Color Yellow 02/08/21 23:07 Urine Appearance Clear (Clear) 02/08/21 23:07 Urine pH 5.0 (4.5-7.5) 02/08/21 23:07 Ur Specific [place] 1.032 (1.000-1.030) H 02/08/21 23:07 Urine Protein Negative (Negative) 02/08/21 23:07 Urine Glucose (UA) Negative (Negative) 02/08/21 23:07 Urine Ketones Negative (Negative) 02/08/21 23:07 Urine Blood Negative (Negative) 02/08/21 23:07 Urine Nitrite Negative (Negative) 02/08/21 23:07 Urine Bilirubin Negative (Negative) 02/08/21 23:07 Urine Urobilinogen Negative (Negative) 02/08/21 23:07 Ur Leukocyte Esterase Negative (Negative) 02/08/21 23:07 COVID-19 Eval Order Covid19 at [facility] 02/09/21 00:06 SARS-CoV-2 (PCR) NEGATIVE (Negative) 02/09/21 00:06 Blood Type A Negative 02/08/21 23:28 Antibody Screen NEGATIVE 02/08/21 23:28 Diagnostic Findings [facility] Patient: MOOSE WALLS (Male) : 52 Status: ER Date: 02/08/21 22:51 Room #: History: fall left hip pain Slices: 529 Priors: Tech: Hiram Rowell @ [phone] Exams: CT LEFT HIP Contrast: Accession Numbers: [id number] Referring Physician: REFERRED SELF Preliminary Findings Only See Final Report For Complete Findings CT LEFT HIP: Mildly displaced acute comminuted fracture of the anterior, superior and medial left acetabulum with extension to the lateral aspect of the left superior pubic ramus. Associated fracture of the left inferior pubic ramus. Fracture of the anterior margin of the left sacral ally adjacent to but not involving the sacroiliac joint. The left femur is intact. No dislocation. Infiltration/hemorrhage associated with the fractures including left pelvic sidewall hemorrhage extending into the lower pelvis. Hemorrhage is adjacent to the urinary bladder which is otherwise unremarkable. Radiologist: Mendel Ortiz M.D. Study ready at 22:54 and initial results transmitted at 23:06 *This report constitutes a preliminary interpretation only. Non-acute findings felt to be unrelated to the clinical presentation may not be discussed in this report. The study will be interpreted and a final report will be generated by the local Radiologist the following shift. To reach the hospital radiology department call [phone]. If a discrepancy is found between the preliminary and final interpretations of this study, please notify us via our Client Portal at [email or web address].You can also fax this report with a description of the discrepancy, or include the final report, to our daytime fax number [phone].If faxing, please indicate the severity of discrepancy using one of the following categories: [ ] 1 - Agree/Informational [ ] 2 - Unlikely to Affect Management [ ] 3 - Possible Eventual Change of Management [ ] 4 - Probable Immediate Change of Management For all other patient related information, please fax us at [phone]. [id number] [facility] Patient: MOOSE WALLS (Male) : 52 Status: ER Date: 02/08/21 22:52 Room #: History: fall Slices: 67 Priors: Tech: Hiram Rowell @ [phone] Exams: CT HEAD Contrast: Accession Numbers: [id number] Referring Physician: REFERRED SELF Preliminary Findings Only See Final Report For Complete Findings CT HEAD: No acute post-traumatic intracranial abnormality. No acute hemorrhage or abnormal extra-axial fluid collection. No acute stroke. No midline shift. No fracture. Radiologist: Mendel Ortiz M.D. Study ready at 22:54 and initial results transmitted at 22:59 *This report constitutes a preliminary interpretation only. Non-acute findings felt to be unrelated to the clinical presentation may not be discussed in this report. The study will be interpreted and a final report will be generated by the local Radiologist the following shift. To reach the hospital radiology department call [phone]. If a discrepancy is found between the preliminary and final interpretations of this study, please notify us via our Client Portal at [email or web address].You can also fax this report with a description of the discrepancy, or include the final report, to our daytime fax number [phone].If faxing, please indicate the severity of discrepancy using one of the following categories: [ ] 1 - Agree/Informational [ ] 2 - Unlikely to Affect Management [ ] 3 - Possible Eventual Change of Management [ ] 4 - Probable Immediate Change of Management For all other patient related information, please fax us at [phone]. [id number] [facility] Patient: MOOSE WALLS (Male) : 52 Status: ER Date: 02/08/21 22:52 Room #: History: fall Slices: 749 Priors: Tech: Hiram Rowell @ [phone] Exams: CT C SPINE Contrast: Accession Numbers: [id number] Referring Physician: REFERRED SELF Preliminary Findings Only See Final Report For Complete Findings CT C SPINE: Reversal of the normal cervical lordosis, most commonly seen with muscle spasm or positioning. No fracture or subluxation. Maintenance of height of the vertebral bodies. Multilevel degenerative changes, greatest at C4-5 and C6-7. Prevertebral soft tissues unremarkable. Radiologist: Mendel Ortiz M.D. Study ready at 22:56 and initial results transmitted at 23:02 *This report constitutes a preliminary interpretation only. Non-acute findings felt to be unrelated to the clinical presentation may not be discussed in this report. The study will be interpreted and a final report will be generated by the local Radiologist the following shift. To reach the hospital radiology department call [phone]. If a discrepancy is found between the preliminary and final interpretations of this study, please notify us via our Client Portal at [email or web address].You can also fax this report with a description of the discrepancy, or include the final report, to our daytime fax number [phone].If faxing, please indicate the severity of discrepancy using one of the following categories: [ ] 1 - Agree/Informational [ ] 2 - Unlikely to Affect Management [ ] 3 - Possible Eventual Change of Management [ ] 4 - Probable Immediate Change of Management For all other patient related information, please fax us at [phone]. [id number] [facility] Patient: MOOSE WALLS (Male) : 52 Status: ER Date: 02/08/21 22:53 Room #: History: fall left hip pain appen pres Slices: 833 Priors: Tech: Hiram Rowell @ [phone] Exams: CT ABDOMEN & PELVIS With Contrast Contrast: IV Amt: 94 ml optiray Accession Numbers: [id number] Referring Physician: REFERRED SELF Preliminary Findings Only See Final Report For Complete Findings CT ABDOMEN & PELVIS With Contrast: Lateral pelvic subcutaneous infiltration/bruising with underlying left pelvic fractures involving sacral ala, superior and inferior pubic rami extending into the anterior, superior medial left acetabular wall, see separate CT left hip report. Associated left pelvic sidewall hemorrhage adjacent to the lateral aspect urinary bladder. No contrast material within urinary bladder of the bladder itself appears grossly intact. Liver, gallbladder, pancreas, spleen and kidneys unremarkable. Bowel and mesentery unremarkable. No bowel obstruction or ileus. No free fluid or intraperitoneal gas. Atherosclerotic vascular calcifications. Radiologist: Mendel Ortiz M.D. Study ready at 22:57 and initial results transmitted at 23:20 *This report constitutes a preliminary interpretation only. Non-acute findings felt to be unrelated to the clinical presentation may not be discussed in this report. The study will be interpreted and a final report will be generated by the local Radiologist the following shift. To reach the hospital radiology department call [phone]. If a discrepancy is found between the preliminary and final interpretations of this study, please notify us via our Client Portal at [email or web address].You can also fax this report with a description of the discrepancy, or include the final report, to our daytime fax number [phone].If faxing, please indicate the severity of discrepancy using one of the following categories: [ ] 1 - Agree/Informational [ ] 2 - Unlikely to Affect Management [ ] 3 - Possible Eventual Change of Management [ ] 4 - Probable Immediate Change of Management For all other patient related information, please fax us at [phone]. [id number] [facility] Patient: MOOSE WALLS (Male) : 52 Status: ER Date: 02/08/21 22:53 Room #: History: fall Slices: 493 Priors: Tech: Hiram Rowell @ [phone] Exams: CT CHEST With Contrast Contrast: IV Amt: 94 ml optiray Accession Numbers: [id number] Referring Physician: REFERRED SELF Preliminary Findings Only See Final Report For Complete Findings CT CHEST With Contrast: No acute post-traumatic abnormality. Mediastinal vascular structures unremarkable. Heart normal in size. No pericardial fluid or thickening. Minimal dependent atelectasis. No infiltrate. No pleural effusion. No pneumothorax. No fracture. Radiologist: Mendel Ortiz M.D. Study ready at 22:57 and initial results transmitted at 23:11 *This report constitutes a preliminary interpretation only. Non-acute findings felt to be unrelated to the clinical presentation may not be discussed in this report. The study will be interpreted and a final report will be generated by the local Radiologist the following shift. To reach the hospital radiology department call [phone]. If a discrepancy is found between the preliminary and final interpretations of this study, please notify us via our Client Portal at [email or web address].You can also fax this report with a description of the discrepancy, or include the final report, to our daytime fax number [phone].If faxing, please indicate the severity of discrepancy using one of the following categories: [ ] 1 - Agree/Informational [ ] 2 - Unlikely to Affect Management [ ] 3 - Possible Eventual Change of Management [ ] 4 - Probable Immediate Change of Management For all other patient related information, please fax us at [phone]. [id number] Code Status & VTE Plan Code Status Full code VTE Prophylaxis Plan VTE Prophylaxis will be ordered: Yes PG Care Time/CCT Total # of Minutes Spent Total Time Spent with Patient: Total time spent is greater than 50% in coordination of care (as documented) at patient's floor/unit and/or counseling patient: Coding Level of Care Code 47175 Initial Inpt Care Lvl 3 Diagnoses Fall from ladder W11.XXXA Encounter type: initial encounter Closed pelvic fracture S32.82XA Encounter type: initial encounter Fracture alignment: without disruption of pelvic ring Pelvic bone location: multiple parts Fracture of sacrum S32.10XA Closed left acetabular fracture S32.402A Type 2 diabetes mellitus E11.9 Hypothyroidism E03.9 Hypertension I10 Hypercholesterolemia E78.00 GERD without esophagitis K21.9 BPH with obstruction/lower urinary tract symptoms N40.1; N13.8 ESTEFANÍA (obstructive sleep apnea) G47.33 (1) Fall from ladder Encounter type: initial encounter Qualified Code(s): W11.XXXA - Fall on and from ladder, initial encounter (2) Closed pelvic fracture Encounter type: initial encounter Fracture alignment: without disruption of pelvic ring Pelvic bone location: multiple parts Qualified Code(s): S32.82XA - Multiple fractures of pelvis without disruption of pelvic ring, initial encounter for closed fracture
[2021-02-09] MEDS ORDERED: GLUCOSE 40% GEL 15 GM TUBE PO PRN (02:24)
[2021-02-09] MEDS ORDERED: GLUCAGON FOR INJ 1 MG VIAL SQ PRN (02:24)
[2021-02-09] MEDS ORDERED: DEXTROSE 50% 50 ML SYRINGE IV PRN (02:24)
[2021-02-09] MEDS ORDERED: CARBOHYDRATES FOR HYPOGLYCEMIA PO PRN (02:24)
[2021-02-09] MEDS ORDERED: GLUCOSE 10 TABS/TUBE PO PRN (02:24)
[2021-02-09] MEDS ORDERED: HYDROCODONE/ACETAMOPHEN 5/325MG TAB PO PRN ×2 (02:24)
[2021-02-09] MEDS ORDERED: ZOLPIDEM TARTRATE 5 MG TAB PO PRN (02:24)
[2021-02-09] MEDS ORDERED: HYDROmorphone INJ 0.5 MG/0.5 ML SYR IV PRN ×2 (02:24)
[2021-02-09] MEDS: LEVOTHYROXINE SODIUM 25 MCG TABLET PO SCH (05:36)
--- NOTE | 2021-02-09 07:34 | CT Scan Report ---
LEFT HIP CT CT DOSE: 3642.01 mGy.cm HISTORY: Left hip pain. fall, pain TECHNIQUE: Multiaxial CT images of the left hip were performed and reformatted in the sagittal and co suzi plane without the use of contrast. A dose lowering technique was utilized adhering to the prin ciples of JOCELINE. COMPARISON: None. FINDINGS: Nondisplaced fracture within the left sacral wing. There is a comminuted nondisplaced fract ure within the left superior pubic ramus which extends into the anterior column of the left acetabulu m. This demonstrates intra-articular extension. There is also a fracture within the medial junction o f the left inferior and superior pubic rami. There is a minimally displaced fracture within the left inferior pubic ramus. No fracture or dislocation within the proximal left femur. Small left pelvic si dewall extraperitoneal hematoma adjacent to the bladder. No significant mass effect at this time. IMPRESSION: 1. Left pelvic fractures as described above. 2. No fracture or dislocation within the proximal left femur. 3. Small left pelvic sidewall/extraperitoneal hematoma adjacent to the bladder without significant ma ss effect. ACT 112: Negative or not required by law. Electronically signed by: Isael Garcia M.D. 02/09/2021 7:33 AM
--- NOTE | 2021-02-09 08:13 | CT Scan Report ---
CT head/brain wo con CLINICAL HISTORY: fall COMPARISON STUDY: No previous studies for comparison. Correlation is made with CT of the sinuses per formed on July 05, 2018. TECHNIQUE: Axial CT of the brain is performed from the vertex to the skull base. IV contrast was not administered for this examination. A dose lowering technique was utilized adhering to the principles of ALARA. CT DOSE: FINDINGS: No intra or extra-axial mass lesions are visualized. There is no CT evidence of acute cortical infarc tion. There is no evidence of midline shift. There is no acute hemorrhage. No acute depressed calvar ial fractures are visualized. There are patchy white matter hypodensities likely on a small vessel basis. There is no evidence of pathologic ventricular dilatation. Mucosal thickening involving bilateral ethmoid air cells is seen. The rest of visualized paranasal si nuses and mastoid air cells are patent and well-aerated. IMPRESSION: No acute intracranial hemorrhage, no midline shift or space occupying lesions. ACT 112: Negative or not required by law. The above report was generated using voice recognition software. It may contain grammatical, syntax o r spelling errors. Electronically signed by: Kavita June DO 02/09/2021 8:12 AM
[2021-02-09 08:25] LABS: Estimated Average Glucose 134 mg/dl; Hemoglobin A1C 6.3 % (4.5-5.6)
--- NOTE | 2021-02-09 08:35 | CT Scan Report ---
CT OF THE CERVICAL SPINE CLINICAL HISTORY: fall COMPARISON STUDY: No previous studies for comparison. CT DOSE: TECHNIQUE: CT scan of the cervical spine was performed from the skull base to the thoracic inlet. Grecia ges are reviewed in the axial, sagittal, and coronal planes. IV contrast was not administered for thi s examination. A dose lowering technique was utilized adhering to the principles of ALARA. FINDINGS: The visualized portions of the lung apices reveal no evidence of pneumothorax. The prevertebral soft tissues are normal. No acute fracture or traumatic malalignment. There is reverse of normal cervical lordosis centered at the C4-C5 level. Multilevel intervertebral disc space narrowing with subchondral sclerosis and osteophytes are seen at the C4-C5, C5-C6 and C6-7 level. Beam hardening artifact involving mid to lower cervical spine slightly limits evaluation. No significant central canal or neural foraminal stenosis is seen on current exam. IMPRESSION: No evidence of acute fracture or traumatic subluxation. ACT 112: Negative or not required by law. The above report was generated using voice recognition software. It may contain grammatical, syntax o r spelling errors. Electronically signed by: Kavita June DO 02/09/2021 8:34 AM
--- NOTE | 2021-02-09 08:38 | CT Scan Report ---
CHEST CT WITH INTRAVENOUS CONTRAST, ABDOMEN AND PELVIS CT WITH IV CONTRAST CT DOSE: HISTORY: fall, L groin/hip pain. Left-sided chest pain. TECHNIQUE: Multiaxial CT images of the chest, abdomen and pelvis were performed following the use of intravenous contrast. A dose lowering technique was utilized adhering to the principles of ALARA. COMPARISON STUDY: Chest CTA 07/22/2015. FINDINGS: Chest CT: No fractures within the visualized osseous structures of the chest. No pneumothorax. No ple ural effusions. The central airways are patent. The lungs are essentially clear. No mediastinal hemat mirlande or lymphadenopathy. No hilar lymphadenopathy. No pericardial effusion. Normal caliber thoracic ao rta with no evidence for dissection. Moderate calcified plaque within the coronary arteries. The hear t is normal in size. Abdomen/pelvis CT: No pneumoperitoneum. No pneumatosis. Please refer the same day left hip CT for fur ther evaluation of the left pelvic/sacral fractures. There is a small left pelvic sidewall/extraperit forman hematoma adjacent to the bladder. However, no associated mass effect on the bladder. The bladde r is mildly distended. No bladder wall thickening. Left hip subcutaneous contusion is noted. Small di verticulum at the second portion of the duodenum. The liver, gallbladder, spleen, adrenal glands, medina creas, and kidneys are unremarkable. No hydronephrosis. No bowel wall thickening or obstruction. Norm al appendix. Normal caliber abdominal aorta. IMPRESSION: 1. No acute traumatic process within the chest. 2. Left pelvic/sacral fractures with a small left pelvic sidewall hematoma. This is better appreciate d on the same day left hip CT. ACT 112: Negative or not required by law. Electronically signed by: Isael Garcia M.D. 02/09/2021 8:36 AM
--- NOTE | 2021-02-09 08:39 | XRay Report ---
XR hip LT 2V w pelvis CLINICAL HISTORY: fall, pain. Left hip pain. COMPARISON STUDY: None. FINDINGS: Nondisplaced fractures within the left inferior pubic ramus and left superior pubic ramus w hich extends into the left acetabulum. No fracture or dislocation within the proximal left femur or r ight hip. IMPRESSION: Nonspecific fractures within the left pubic ring extending into the left acetabulum. No dislocation. ACT 112: Negative or not required by law. Electronically signed by: Isael Garcia M.D. 02/09/2021 8:38 AM
[2021-02-09] MEDS: PANTOprazole 40 MG TAB PO SCH (08:58)
[2021-02-09] MEDS: CEROVITE ADV FORMULA TAB PO SCH (08:58)
[2021-02-09] MEDS: ATORVASTATIN 20 MG TAB PO SCH (08:59)
[2021-02-09] MEDS: SERTRALINE HCL 50 MG TABLET PO SCH (08:59)
[2021-02-09] MEDS: EZETIMIBE 10 MG TABLET PO SCH (08:59)
[2021-02-09] MEDS: LOSARTAN POTASSIUM 50 MG TAB PO SCH (08:59)
[2021-02-09] MEDS: TAMSULOSIN HCL 0.4 MG CAP PO SCH (08:59)
[2021-02-09] MEDS: *AZELASTINE*ORDER AWAITING ACTION SCH ×3 (09:00→23:58)
[2021-02-09] MEDS: INSULIN ASPART 100 UNITS/ML 3 ML PEN SC SCH ×4 (09:00→20:30)
[2021-02-09] MEDS: TRIAMCINOLONE ACET NASAL SPRAY 10.8ML BTL NAE SCH (09:00)
[2021-02-09] MEDS: HYDROCODONE/ACETAMOPHEN 5/325MG TAB PO PRN ×2 (13:46→20:22)
[2021-02-09] MEDS: ENOXAPARIN INJ 40 MG/0.4 ML SYR SQ SCH (13:46)
--- NOTE | 2021-02-09 16:19 | Communication Note ---
Date of Service: February 09, 2021 This is a bridge note Mr. Rice is a 70-year-old white male with a PMHx of anxiety, RLS, NIDDM, hypothyroidism, HTN, HLD, GERD, and BPH. He sustained a fall from a ladder resulting in a closed pelvic fracture /fracture of sacrum/left acetabular fracture. Ortho reviewed imaging from ED and noted this is a nonsurgical trauma and will see patient in house. Recommending weightbearing as tolerated (flatfoot) and PT/OT. Patient has [place] on board for pain with Dilaudid for breakthrough. Pain currently 2/10 on 5 mg of hydrocodone. Denies fevers, chills, chest pain, shortness of breath, abdominal pain, nausea or vomiting. Patient lives in a 4 story home. Has 8 steps leading into the home. For the most part, will be able to maintain ADLs on first story but will need to do 8 steps just to get into the home. He does not work and resides with his . His exam is unremarkable Fall from ladder resulting in fracture of sacrum/left acetabular fracture/closed pelvic fracture -Ortho on boardgreatly appreciate recommendations -Plan is for pain control, PT/OT to ensure patient can maintain ADLs with hopeful discharge for home; however, patient will need to be able to perform steps -Lovenox for DVT prophylaxis -No added changes from H&P
[2021-02-09] MEDS: HYDROmorphone INJ 0.5 MG/0.5 ML SYR IV PRN (21:16)
--- NOTE | 2021-02-09 23:33 | Electrocardiogram Report ---
Test Reason : Blood Pressure : / mmHG Vent. Rate : 067 BPM Atrial Rate : 067 BPM P-R Int : 162 ms QRS Dur : 084 ms QT Int : 394 ms P-R-T Axes : 048 079 052 degrees QTc Int : 416 ms Normal sinus rhythm Normal ECG When compared with ECG of 08-JUN-2018 18:25, No significant change was found Confirmed by Justin Hanson ([id number]) on 02/09/2021 11:32:57 PM Referred By: REFERRED SELF Confirmed By:Justin Hanson
[2021-02-10] MEDS: HYDROCODONE/ACETAMOPHEN 5/325MG TAB PO PRN ×2 (01:22→08:05)
[2021-02-10] MEDS: LEVOTHYROXINE SODIUM 25 MCG TABLET PO SCH (05:55)
[2021-02-10] MEDS: HYDROmorphone INJ 0.5 MG/0.5 ML SYR IV PRN (06:35)
[2021-02-10 06:42] LABS: Basophils # (auto) 0.02 K/uL (0-0.2); Basophils % (auto) 0.3 %; Eosinophils # (auto) 0.25 K/uL (0-0.5); Eosinophils % (auto) 3.5 %; Hematocrit (blood only) 37.9 % (42-52); Immature Granulocytes # (auto) 0.01 K/uL (0.00-0.02); Immature Granulocytes % (auto) 0.1 %; Lymphocytes # (auto) 1.61 K/uL (1.2-3.4); Lymphocytes % (auto) 22.7 %; Mean Corpuscular Hemoglobin 31.6 pg (25-34); Mean Corpuscular Hgb Conc 34.3 g/dL (32-36); Mean Corpuscular Volume 92.2 fL (80-100); Mean Platelet Volume 9.3 fL (7.4-10.4); Monocytes # (auto) 0.65 K/uL (0.11-0.59); Monocytes % (auto) 9.2 %; Neutrophils # (auto) 4.56 K/uL (1.4-6.5); Neutrophils % (auto) 64.2 %; Platelet Count 145 K/uL (130-400); RDW Coefficient of Variation 13.5 % (11.5-14.5); RDW Standard Deviation 45.7 fL (36.4-46.3); Red Blood Count 4.11 M/uL (4.7-6.1)
[2021-02-10 07:15] LABS: BUN Creatinine Ratio 16.1 (10-20); Calcium 8.6 mg/dl (8.5-10.1); Creatinine Clr Calc Pharmacy 94.2 ml/min; Est GFR (African American) 94.3 ml/min; Est GFR (Non-African American) 81.3 ml/min; Magnesium 2.1 mg/dl (1.8-2.4); Potassium 3.9 mmol/L (3.5-5.1)
[2021-02-10] MEDS: EZETIMIBE 10 MG TABLET PO SCH (07:55)
[2021-02-10] MEDS: *AZELASTINE*ORDER AWAITING ACTION SCH ×3 (07:55→23:48)
[2021-02-10] MEDS: PANTOprazole 40 MG TAB PO SCH (07:56)
[2021-02-10] MEDS: LOSARTAN POTASSIUM 50 MG TAB PO SCH (07:56)
[2021-02-10] MEDS: SERTRALINE HCL 50 MG TABLET PO SCH (07:56)
[2021-02-10] MEDS: ATORVASTATIN 20 MG TAB PO SCH (07:56)
[2021-02-10] MEDS: TAMSULOSIN HCL 0.4 MG CAP PO SCH (07:56)
[2021-02-10] MEDS: CEROVITE ADV FORMULA TAB PO SCH (07:56)
[2021-02-10] MEDS: ENOXAPARIN INJ 40 MG/0.4 ML SYR SQ SCH (07:57)
[2021-02-10] MEDS: TRIAMCINOLONE ACET NASAL SPRAY 10.8ML BTL NAE SCH (07:57)
[2021-02-10] MEDS: INSULIN ASPART 100 UNITS/ML 3 ML PEN SC SCH ×4 (08:58→20:42)
--- NOTE | 2021-02-10 12:55 | Hospitalist Progress Note ---
Date of Service February 10, 2021 Assessment & Plan (1) Fall from ladder: Plan: Fall from ladder resulting in closed pelvic fracture/fracture of sacrum/closed left acetabular fracture- -[place] 5/325, 1 p.o. every 6 hours as needed moderate pain -[place] 5/325, 2 p.o. every 6 hours as needed severe pain -add Oxycodone 10mg (long acting) as pain intensified with any movement and at that point, uncontrolled with norco -still continue Dilaudid for breakthrough pain -add colace given narcotic use and risk of compensation -lengthy D/W patient regarding risk of dependence/abuse and using opioids for shortest period of time necessary and lowest dose effective. -can also use toradol at needed. -ortho on board-- nonsurgical fractures. Appreciate recommendations -Flatfoot weight bearing to LLE. -PT/OT on board-- recommend [facility] for Acute rehab (patient agreeable) -consult case mgmt to help facilitate placement -otherwise, H/H stable -patient using I/S. (2) Closed pelvic fracture: Plan: See above (3) Fracture of sacrum: Plan: See above (4) Closed left acetabular fracture: Plan: See above (5) Type 2 diabetes mellitus: Plan: -BS currently acceptable (133 - 100 - 120 - 99 - 133 - 123 - 146) -continue BS monitoring with NovoLog coverage per scale -Hold Metformin (6) Hypothyroidism: Plan: -Continue levothyroxine (7) Hypertension: Plan: -Continue losartan (8) Hypercholesterolemia: Plan: -Continue Zetia and atorvastatin (9) GERD without esophagitis: Plan: -Continue esomeprazole/pantoprazole (10) BPH with obstruction/lower urinary tract symptoms: Plan: -Continue tamsulosin. no voiding issues (11) ESTEFANÍA (obstructive sleep apnea): Plan: - BiPAP at bedtime as needed Plan: Plan of care to be discussed with Dr. Brand. Further orders as warranted. Admission and Anticipated Discharge Date Admission Date: February 09, 2021 Subjective Patient seen on daily rounds today. Pain (with NO MOVEMENT) is approximately 2/10. Was able to sit at the bedside and stand with PT/OT. Pain with this was i ncreased to 5/10. Still using/requiring Dilaudid for breakthrough pain. Did not ambulate. Therapy at bedside and recommending [facility] as patient has 8 steps into his home and unable to do this with the current WB restrictions (flat foot). Life with his who is unable to care for him with these restrictions. Patient is moving his bladder without difficulty. Has not moved his bowels but does not feel that he needs to just yet. Denies F/C, CP, SOB, abd pain, N/V. Review of Systems Review of Systems: All systems reviewed and are unremarkable except as noted in HPI and below c/o uncontrolled left hip pain. Denies fevers, chills, headache, nasal congestion, sore throat, cough, chest pain, shortness of breath, abdominal pain, nausea, vomiting, dysuria, hematuria, frequency, skin lesions or rashes. Physical Exam Physical Exam: General: Resting comfortably in his hospital bed. NAD. Neck: No JVD. Negative hepatojugular reflex Cardiac: RRR with 1/6 DOUGLAS heard best at the LSB Lungs: CTA without W/R/R Abdomen: Normoactive X4. Soft and nontender in all quadrants. Extremities: No peripheral clubbing cyanosis or edema Neuro: A&O X4 cranial nerves II through XII are grossly intact no focal neuro de ficits Skin: No obvious skin lesions or rashes Results & Data Results & Data ([facility]) Vital Signs (Past 12 Hours) Vital Signs Temp Pulse Resp BP Pulse Ox 02/10/21 07:07 36.7 C 58 L 18 151/65 H 95 Laboratory Results 02/10/21 06:20 02/10/21 06:20 PG Care Time/CCT Total # of Minutes Spent Total Time Spent with Patient: Total time spent is greater than 50% in coordination of care (as documented) at patient's floor/unit and/or counseling patient: C[place] [address] Subseq Hosp Care Lvl 3 Patient Type Established History Detailed Exam Detailed Medical Decision Making Moderate Complexity Diagnoses Fall from ladder W11.XXXA Encounter type: initial encounter Closed pelvic fracture S32.82XA Encounter type: initial encounter Fracture alignment: without disruption of pelvic ring Pelvic bone location: multiple parts Fracture of sacrum S32.10XA Closed left acetabular fracture S32.402A Type 2 diabetes mellitus E11.9 Hypothyroidism E03.9 Hypertension I10 Hypercholesterolemia E78.00 GERD without esophagitis K21.9 BPH with obstruction/lower urinary tract symptoms N40.1; N13.8 ESTEFANÍA (obstructive sleep apnea) G47.33 (1) Fall from ladder Encounter type: initial encounter Qualified Code(s): W11.XXXA - Fall on and from ladder, initial encounter (2) Closed pelvic fracture Encounter type: initial encounter Fracture alignment: without disruption of pelvic ring Pelvic bone location: multiple parts Qualified Code(s): S32.82XA - Multiple fractures of pelvis without disruption of pelvic ring, initial encounter for closed fracture
[2021-02-10] MEDS: oxyCODONE HCL 10 MG TABCR (OxyCONTIN) PO SCH ×2 (13:16→23:47)
[2021-02-10] MEDS: KETOROLAC TROMETHAMINE 15 MG/ML VIAL IV PRN (17:58)
[2021-02-10] MEDS: DOCUSATE SODIUM 100 MG CAP PO SCH (20:42)
[2021-02-11] MEDS: LEVOTHYROXINE SODIUM 25 MCG TABLET PO SCH (06:12)
[2021-02-11] MEDS: PANTOprazole 40 MG TAB PO SCH (08:46)
[2021-02-11] MEDS: TAMSULOSIN HCL 0.4 MG CAP PO SCH (08:46)
[2021-02-11] MEDS: SERTRALINE HCL 50 MG TABLET PO SCH (08:46)
[2021-02-11] MEDS: oxyCODONE HCL 10 MG TABCR (OxyCONTIN) PO SCH ×2 (08:46→21:19)
[2021-02-11] MEDS: CEROVITE ADV FORMULA TAB PO SCH (08:46)
[2021-02-11] MEDS: LOSARTAN POTASSIUM 50 MG TAB PO SCH (08:46)
[2021-02-11] MEDS: *AZELASTINE*ORDER AWAITING ACTION SCH ×3 (08:46→23:58)
[2021-02-11] MEDS: EZETIMIBE 10 MG TABLET PO SCH (08:47)
[2021-02-11] MEDS: DOCUSATE SODIUM 100 MG CAP PO SCH ×2 (08:47→21:19)
[2021-02-11] MEDS: ATORVASTATIN 20 MG TAB PO SCH (08:47)
[2021-02-11] MEDS: ENOXAPARIN INJ 40 MG/0.4 ML SYR SQ SCH (08:47)
[2021-02-11] MEDS: INSULIN ASPART 100 UNITS/ML 3 ML PEN SC SCH ×4 (08:48→21:22)
[2021-02-11] MEDS: TRIAMCINOLONE ACET NASAL SPRAY 10.8ML BTL NAE SCH (08:49)
[2021-02-11] MEDS: HYDROCODONE/ACETAMOPHEN 5/325MG TAB PO PRN (11:06)
--- NOTE | 2021-02-11 15:08 | Orthopedic Progress Note ---
Date of Service February 11, 2021 Assessment & Plan (1) Closed left acetabular fracture: (2) Fracture of sacrum: (1) Closed left acetabular fracture: (2) Fracture of sacrum: 70 yo M ESTEFANÍA, Type 2 DM, Obesity, HTN, gout, hypothyroidism, GERD with fall on 02/08/21 resulting in minimally displaced left acetabular and sacral fractures. Acceptable alignment for nonsurgical management. - Discussed diagnosis, prognosis, and treatment expectations. Patient concerned about going home with split-entry and many stairs. - Bedrest until pain controlled and PT/OT mobilization: Flat foot WBing to LLE for 6-8 weeks. - Will need 6 weeks of VTE ppx. Will start Lovenox daily. May transition to ASA 325mg when mobilizes and transitions to outpatient. - Continue plan of care Dispo: pending pain management with oral medications, PT/OT evals, and decision on next level of care. Currently awaiting insurance approval for inpatient stay at [facility]. Plan for repeat x-rays in the outpatient ortho clinic (Dr. Fischer or Dr. Neil) in 2 weeks from injury and again at 6 weeks before advancement with WBing. Call with questions. Silver Nielson is a pleasant 70 year old male, 3 days s/p minimally displaced left acetabular and sacral fractures. Patient states his pain has been mostly well controlled with his current regimen. He does experience some difficulty with sleep at night due to the pain. He has been working with physical therapy for ambulatory assistance. He was seen by them today and performed flat foot weight bearing from his bed to the chair in his room. His pain made this difficult for him. He locates most of his pain laterally and in his groin. He was not having any hip pain prior to the fall three days ago. Overall, he has noticed some improvement. He plans to attend [facility] for inpatient rehab as his house has several staircases that he is unable to navigate at this time. [facility] is in the process of getting insurance approval for his upcoming stay. Patient denies any fever, chills, sweats, or any numbness/tingling. He is looking forward to the next step at [facility]. Review of Systems All systems reviewed & are unremarkable except as noted in HPI & below. Physical Exam Patient was laying comfortably in bed, in no acute distress upon arrival. A+Ox3 Left lower extremity: Pain with attempted log-roll. Full active ROM with foot plantarflexion/dorsiflexion and EHL activation. No palpable tenderness at knee or ankle. Skin appears clean, dry, and intact. No evidence of skin disruption with some ecchymosis noted at lateral aspect of hip. NVI Results & Data Results & Data Laboratory Results . Diagnostic Findings . Radiographs: Intact superior acetabular dome, suggestion of pubic rami fracture, no acute findings to proximal femur CT L hip: Minimally displaced fractures involving the pubic rami, anterior column propagating to anterior wall and anterior articular surface without significant displacement. Stable joint. Minimally displaced sacral fracture. PG Care Time/CCT Total # of Minutes Spent Total Time Spent with Patient: Total time spent is greater than 50% in coordination of care (as documented) at patient's floor/unit and/or counseling patient: Coding Level of Care Code 02039 Subseq Hosp Care Lvl 2 Diagnoses Closed left acetabular fracture S32.402A Fracture of sacrum S32.10XA
[2021-02-11] MEDS ORDERED: POLYETHYLENE (MIRALAX) 17 GM PACK PO PRN (18:29)
--- NOTE | 2021-02-11 18:33 | Hospitalist Progress Note ---
Date of Service February 11, 2021 Assessment & Plan (1) Fall from ladder: Plan: Fall from ladder resulting in closed pelvic fracture/fracture of sacrum/closed left acetabular fracture- -oxycodone long-acting 10 mg p.o. twice daily -[place] 5/325, 1 p.o. every 6 hours as needed moderate pain -[place] 5/325, 2 p.o. every 6 hours as needed severe pain -still continue Dilaudid for breakthrough pain -add colace given narcotic use and risk of compensation -MiraLAX daily until he has a BM then as needed -lengthy D/W patient regarding risk of dependence/abuse and using opioids for shortest period of time necessary and lowest dose effective. -can also use toradol at needed. -ortho on board-- nonsurgical fractures. Appreciate recommendations -Flatfoot weight bearing to LLE. -PT/OT on board-- recommend [facility] for Acute rehab (patient agreeable) -consult case mgmt to help facilitate placement -otherwise, H/H stable -patient using I/S. (2) Closed pelvic fracture: Plan: See above (3) Fracture of sacrum: Plan: See above (4) Closed left acetabular fracture: Plan: See above (5) Type 2 diabetes mellitus: Plan: -BS currently acceptable (133 - 100 - 120 - 99 - 133 - 123 - 146) -continue BS monitoring with NovoLog coverage per scale -Hold Metformin (6) Hypothyroidism: Plan: -Continue levothyroxine (7) Hypertension: Plan: -Continue losartan (8) Hypercholesterolemia: Plan: -Continue Zetia and atorvastatin (9) GERD without esophagitis: Plan: -Continue esomeprazole/pantoprazole (10) BPH with obstruction/lower urinary tract symptoms: Plan: -Continue tamsulosin. no voiding issues (11) ESTEFANÍA (obstructive sleep apnea): Plan: - BiPAP at bedtime as needed Plan: Patient medically stable for discharge. Awaiting authorization for placement. Plan of care to be discussed with Dr. Brand. Further orders as warranted. Admission and Anticipated Discharge Date Admission Date: February 09, 2021 Subjective Patient seen on daily rounds today. Overall vocalizes no complaints or concerns. Pain significantly improved with the addition of the oxycodone long-acting. Has not used any Dilaudid for breakthrough pain. Denies any ill effects to oxycodone Has not had a BM since admission. Otherwise, vocalizes no complaints or concerns. Denies fevers, chills, chest pain, shortness of breath, abdominal pain, nausea or vomiting Awaiting authorization for placement to [facility] Review of Systems Review of Systems: All systems reviewed and are unremarkable except as noted in HPI and below Denies fevers, chills, headache, nasal congestion, sore throat, cough, chest pain, shortness of breath, abdominal pain, nausea, vomiting, dysuria, hematuria, frequency, skin lesions or rashes. Physical Exam Physical Exam: General: Resting comfortably in his hospital bed. NAD. Neck: No JVD. Negative hepatojugular reflex Cardiac: RRR with 1/6 DOUGLAS Lungs: CTA without W/R/R Abdomen: Normoactive X4. Soft and nontender in all quadrants. Extremities: No peripheral clubbing cyanosis or edema. Distal pulses to the bilateral lower extremities are intact and symmetrical bilaterally. Capillary refill +2. Negative Homans' sign. No calf tenderness. Neuro: A&O X4 cranial nerves II through XII are grossly intact no focal neuro deficits Skin: No obvious skin lesions or rashes Results & Data Results & Data ([facility]) Vital Signs (Past 12 Hours) Vital Signs Temp Pulse Resp BP Pulse Ox 02/11/21 15:00 36.8 C 54 L 20 153/76 H 96 02/11/21 08:00 36.8 C 58 L 20 160/87 H 95 Laboratory Results No labs today PG Care Time/CCT Total # of Minutes Spent Total Time Spent with Patient: Total time spent is greater than 50% in coordination of care (as documented) at patient's floor/unit and/or counseling patient: Coding [place] [address] Subseq Hosp Care Lvl 1 Patient Type Established History Problem Focused Exam Problem Focused Medical Decision Making Straight Forward Diagnoses Fall from ladder W11.XXXA Encounter type: initial encounter Closed pelvic fracture S32.82XA Encounter type: initial encounter Fracture alignment: without disruption of pelvic ring Pelvic bone location: multiple parts Fracture of sacrum S32.10XA Closed left acetabular fracture S32.402A Type 2 diabetes mellitus E11.9 Hypothyroidism E03.9 Hypertension I10 Hypercholesterolemia E78.00 GERD without esophagitis K21.9 BPH with obstruction/lower urinary tract symptoms N40.1; N13.8 ESTEFANÍA (obstructive sleep apnea) G47.33 (1) Fall from ladder Encounter type: initial encounter Qualified Code(s): W11.XXXA - Fall on and from ladder, initial encounter (2) Closed pelvic fracture Encounter type: initial encounter Fracture alignment: without disruption of pelvic ring Pelvic bone location: multiple parts Qualified Code(s): S32.82XA - Multiple fractures of pelvis without disruption of pelvic ring, initial encounter for closed fracture
[2021-02-12] MEDS: LEVOTHYROXINE SODIUM 25 MCG TABLET PO SCH (06:13)
[2021-02-12] MEDS: HYDROCODONE/ACETAMOPHEN 5/325MG TAB PO PRN ×2 (06:17→14:03)
[2021-02-12] MEDS: ATORVASTATIN 20 MG TAB PO SCH (08:38)
[2021-02-12] MEDS: DOCUSATE SODIUM 100 MG CAP PO SCH (08:39)
[2021-02-12] MEDS: ENOXAPARIN INJ 40 MG/0.4 ML SYR SQ SCH (08:41)
[2021-02-12] MEDS: LOSARTAN POTASSIUM 50 MG TAB PO SCH (08:48)
[2021-02-12] MEDS: EZETIMIBE 10 MG TABLET PO SCH (08:48)
[2021-02-12] MEDS: CEROVITE ADV FORMULA TAB PO SCH (08:49)
[2021-02-12] MEDS: oxyCODONE HCL 10 MG TABCR (OxyCONTIN) PO SCH (08:50)
[2021-02-12] MEDS: PANTOprazole 40 MG TAB PO SCH (08:51)
[2021-02-12] MEDS: TAMSULOSIN HCL 0.4 MG CAP PO SCH (08:52)
[2021-02-12] MEDS: SERTRALINE HCL 50 MG TABLET PO SCH (08:52)
[2021-02-12] MEDS: TRIAMCINOLONE ACET NASAL SPRAY 10.8ML BTL NAE SCH (08:55)
[2021-02-12] MEDS: INSULIN ASPART 100 UNITS/ML 3 ML PEN SC SCH ×2 (09:11→13:31)
[2021-02-12] MEDS: *AZELASTINE*ORDER AWAITING ACTION SCH (09:17)
[2021-02-12] MEDS: KETOROLAC TROMETHAMINE 15 MG/ML VIAL IV PRN (11:09)
--- NOTE | 2021-02-12 15:49 | Discharge Summary ---
Date of Service February 12, 2021 Admission HPI Per Admitting Provider The patient is a 70-year-old male with a past medical history including RLS, diabetes mellitus type 2, sleep disturbances, SNHL of both ears, obesity, ESTEFANÍA, hypothyroidism, hypertension, hypercholesterolemia, GERD without esophagitis, BPH with LUTS, anxiety, gout and gastric ulcer. He presents after fall as noted above, immediately reporting left hip and groin pain, and was unable to walk without assistance. He did have a cut on the side of his head, but denied any headache, neck ache or vision changes. Principal Diagnosis 1. Fall from ladder resulting in: 2. pelvic fracture/fracture of sacrum/closed left acetabular fracture 3. Laceration of scalp s/p repair 4. Constipation Discharge Exam General: Resting comfortably in his hospital bed. NAD. Neck: No JVD. Negative hepatojugular reflex Cardiac: RRR with 1/6 DOUGLAS Lungs: CTA without W/R/R Abdomen: Normoactive X4. Soft and nontender in all quadrants. Extremities: No peripheral clubbing cyanosis or edema. Distal pulses to the bilateral lower extremities are intact and symmetrical bilaterally. Capillary refill +2. Negative Homans' sign. No calf tenderness. Neuro: A&O X4 cranial nerves II through XII are grossly intact no focal neuro deficits Skin: No obvious skin lesions or rashes Discharge Data Allergies Allergy/AdvReac Type Severity Reaction Status Date / Time No Known Drug Allergies Allergy Unknown Unknown Verified 02/08/21 21:43 Consultations 02/08/21 23:59 Consult Orthopedic Surgery Routine Assessment & Plan (1) Closed left acetabular fracture: (2) Fracture of sacrum: (1) Closed left acetabular fracture: (2) Fracture of sacrum: 70 yo M ESTEFANÍA, Type 2 DM, Obesity, HTN, gout, hypothyroidism, GERD with fall on 02/08/21 resulting in minimally displaced left acetabular and sacral fractures. Acceptable alignment for nonsurgical management. - Discussed diagnosis, prognosis, and treatment expectations. Patient concerned about going home with split-entry and many stairs. - Bedrest until pain controlled and PT/OT mobilization: Flat foot WBing to LLE for 6-8 weeks. - Will need 6 weeks of VTE ppx. Will start Lovenox daily. May transition to ASA 325mg when mobilizes and transitions to outpatient. - Continue plan of care Dispo: pending pain management with oral medications, PT/OT evals, and decision on next level of care. Currently awaiting insurance approval for inpatient stay at [facility]. Plan for repeat x-rays in the outpatient ortho clinic (Dr. Fischer or Dr. Neil) in 2 weeks from injury and again at 6 weeks before advancement with WBing. 02/09/21 00:00 ED Decision to Admit Stat Ordered Studies 02/08/21 21:30 CT abd pelvis IV con only Urgent Lateral pelvic subcutaneous infiltration/bruising with underlying left pelvic fractures involving sacral ala, superior and inferior pubic rami extending into the anterior, superior medial left acetabular wall, see separate CT left hip report. Associated left pelvic sidewall hemorrhage adjacent to the lateral aspect urinary bladder. No contrast material within urinary bladder of the bladder itself appears grossly intact. Liver, gallbladder, pancreas, spleen and kidneys unremarkable. Bowel and mesentery unremarkable. No bowel obstruction or ileus. No free fluid or intraperitoneal gas. Atherosclerotic vascular calcifications. CT cervical spine wo con Urgent Reversal of the normal cervical lordosis, most commonly seen with muscle spasm or positioning. No fracture or subluxation. Maintenance of height of the vertebral bodies. Multilevel degenerative changes, greatest at C4-5 and C6-7. Prevertebral soft tissues unremarkable. CT chest diagnostic w con Urgent No acute post-traumatic abnormality. Mediastinal vascular structures unremarkable. Heart normal in size. No pericardial fluid or thickening. Minimal dependent atelectasis. No infiltrate. No pleural effusion. No pneumothorax. No fracture. CT head/brain wo con Urgent No acute post-traumatic intracranial abnormality. No acute hemorrhage or abnormal extra-axial fluid collection. No acute stroke. No midline shift. 02/08/21 22:10 CT hip LT wo con Urgent: Mildly displaced acute comminuted fracture of the anterior, superior and medial left acetabulum with extension to the lateral aspect of the left superior pubic ramus. Associated fracture of the left inferior pubic ramus. Fracture of the anterior margin of the left sacral ally adjacent to but not involving the sacroiliac joint. The left femur is intact. No dislocation. Infiltration/hemorrhage associated with the fractures including left pelvic sidewall hemorrhage extending into the lower pelvis. Hemorrhage is adjacent to the urinary bladder which is otherwise unremarkable. Hospital Course (1) Fall from ladder: Fall from ladder resulting in closed pelvic fracture/fracture of sacrum/closed left acetabular fracture Pain currently controlled with: -oxycodone long-acting 10 mg p.o. twice daily -[place] 5/325, 1 p.o. every 6 hours as needed moderate pain -[place] 5/325, 2 p.o. every 6 hours as needed severe pain -Initially with Dilaudid on board for breakthrough pain; however, no longer needed with addition of long-acting oxycodone -colace given narcotic use and risk of compensation -MiraLAX daily until he has a BM then as needed -Offered but declined Dulcolax suppository today -lengthy D/W patient regarding risk of dependence/abuse and using opioids for shortest period of time necessary and lowest dose effective. -ortho on board-- nonsurgical fractures. Appreciate recommendations. Patient to follow-up in 2 weeks -Flatfoot weight bearing to LLE. -PT/OT on board-- recommend [facility] for Acute rehab (patient agreeable) -consult case mgmt was on board to help facilitate this -otherwise, H/H stable -patient was given incentive spirometry while in house (2) Constipation: (3) Closed pelvic fracture: See above (4) Fracture of sacrum: See above (5) Closed left acetabular fracture: See above (6) Laceration of scalp: -S/p repair. To remove aarti in 7 to 10 days per house physician (7) Type 2 diabetes mellitus: -May resume -Blood sugars controlled while in house with use of NovoLog for sliding scale correction dosing (8) Hypothyroidism: -Continue levothyroxine (9) Hypertension: -Continue losartan (10) Hypercholesterolemia: -Continue Zetia and atorvastatin (11) GERD without esophagitis: -Continue esomeprazole/pantoprazole (12) BPH with obstruction/lower urinary tract symptoms: -Continue tamsulosin. no voiding issues (13) ESTEFANÍA (obstructive sleep apnea): - BiPAP at bedtime Patient medically stable for discharge. Follow-up with house physician with his 24 to 48 hours Follow-up with orthopedics within 2 weeks Total Time Total Time Spent Total Time Spent (In Minutes): 25 Discharge Plan Discharge Items Patient Disposition: Transfer Inpatient Rehab Fac Reason For Visit: PELVIC FRACTURES, PELVIC SIDEWALL HEMORRHAGE Discharge Diagnosis: 1. Fall From Ladder resulting in Closed Pelvic fracture/fracture of sacrum/closed left acetabular fracture--> NOT SURGICAL 2. Laceration of Scalp requiring closure Activity: As commented below Activity Comment: FLATFOOT WEIGHT BEARING TO LEFT LOWER EXTREMITY Weightbearing Comment: flatfoot weight bearing as outlined by ortho Non-emergency contact: Primary Care Provider and Specialist Call non-emergency contact if: you have any medication questions and your pain is not controlled Follow-up/Referrals: Jaren Brand DO [Primary Care Provider] - Tip Neil MD [Surgeon] - Diet: Regular Addtl Attending Provider Instructions: - Patient sustained a nonsurgical fracture of the Left acetabulum/closed pelvis and sacral fracture - Orthopedics on board. Recommending Flatfoot weightbearing until specified otherwise. - need to follow up with Ortho (Dr. Neil or Dr. Fischer) in 2 weeks - For head laceration, clear with soap and water. To have aarti removed in 7- 10 days (placed on 02/09/21) - Follow up with House Physician within 24-48 hours - Recommend using narcotics (lowest dose possible for shortest time possible). Titration at discretion of house Physician. Lengthy D/W patient regarding risk of addiction/dependence - Bowel regimen recommended. Pt on daily Miralax with BID colace. Recommended changing this today but he wanted to wait until he got to [facility] as to NOT have the urge to have a BM until transferred. - patient does use a Bipap chronically for ESTEFANÍA - Return to the ED for any new or worsening symptoms Pending Studies at Discharge: No Stand-Alone Forms: My [facility] Skilled Items Patient informed of condition?: Yes DNR: No Discharge Level of Care: Acute rehab Communicable Disease: No Discharge Prognosis: Stable Lines: None Urinary Catheter: No Medications and DC Order Prescriptions: New aspirin 325 mg tablet,delayed release (DR/EC) 325 mg PO DAILY Qty: 30 RF: 0 polyethylene glycol 3350 [Miralax] 17 gram Powder In Packet 17 g PO DAILY PRN (Reason: constipation) Qty: 14 RF: 0 hydrocodone-acetaminophen 5-325 mg Tablet 1 tab PO Q6H PRN (Reason: pain) Qty: 36 RF: 0 docusate sodium 100 mg Capsule 100 mg PO BID Qty: 60 RF: 0 oxycodone [OxyContin] 10 mg Tablet,Oral Only,Ext.Rel.12 Hr 10 mg PO Q12 Qty: 6 RF: 0 Continued atorvastatin 20 mg tablet 20 mg PO DAILY Qty: 90 RF: 1 levothyroxine 25 mcg tablet 25 mcg PO DAILY Qty: 90 RF: 3 esomeprazole magnesium 40 mg capsule,delayed release(DR/EC) 40 mg PO DAILY Qty: 90 RF: 1 sertraline 50 mg tablet 50 mg PO DAILY Qty: 90 RF: 1 losartan 50 mg tablet 50 mg PO DAILY Qty: 90 RF: 1 metformin 750 mg tablet extended release 24 hr 750 mg PO QPM Qty: 90 RF: 3 tamsulosin 0.4 mg capsule 0.8 mg PO DAILY Qty: 180 RF: 1 BiPap Supplies Misc See Rx Instructions .ROUTE .COMPLEX Qty: 1 RF: 0 triamcinolone acetonide [Nasacort] 55 mcg aerosol,spray 2 spray intranasal DAILY Qty: 3 RF: 5 azelastine 137 mcg (0.1 %) aerosol,spray 2 spray INTRANASAL BID Qty: 3 RF: 3 Multi-Day with Iron 18-400 mg-mcg Tablet 1 tab PO DAILY RF: 0 zolpidem 5 mg tablet 5 mg PO HS PRN (Reason: insomnia) Qty: 30 RF: 0 No Action ezetimibe 10 mg tablet 10 mg PO DAILY Qty: 90 RF: 1 Discharge Orders: Discharge Order (Routine); Ordered 02/12/21 Ordered By: Lizzy Greene/Other Patient Handouts: A1C, Managing Type 2 Diabetes, ED Pelvic Fracture Admission Data Admit Date/Time: 02/09/21 01:21 Attending Provider: Lalo Brand Admit Provider: Maciej Gibbs Primary Care Provider: Jaren Brand Other Providers: Tip Neil ; Lalo Brand ; [facility] Other Interventions: Discharge Summary Assessment (RN) Last Done: 02/12/21 14:36 Supervising Physician Co-Signing Physician Notes I supervised Lizzy Tipton PA-C on the care of this patient. I interviewed and examined the patient independently of her. The plan is as written in her note except for any following changes/exceptions: None Seen today. Feeling relatively comfortable while in bed. Feels he may need to have a BM. Ready for discharge to rehab in hopes of speedy recovery and home. Coding Level of Care Code D/C DAY MANAGEMENT <30 MINS Diagnoses Fall from ladder W11.XXXA Encounter type: initial encounter Closed pelvic fracture S32.82XA Encounter type: initial encounter Fracture alignment: without disruption of pelvic ring Pelvic bone location: multiple parts Fracture of sacrum S32.10XA Closed left acetabular fracture S32.402A Type 2 diabetes mellitus E11.9 Hypothyroidism E03.9 Hypertension I10 Hypercholesterolemia E78.00 GERD without esophagitis K21.9 BPH with obstruction/lower urinary tract symptoms N40.1; N13.8 ESTEFANÍA (obstructive sleep apnea) G47.33 Laceration of scalp S01.01XA Encounter type: initial encounter Constipation K59.00 Time Spent (min) 25
== END 2021-02-12 17:08 | DRG 536 ==
LOC: ED 20:56 → SUATTDRO 02-09 01:21 → 3N 02-09 01:21
DX: E66.9 Obesity, unspecified; K59.00 Constipation, unspecified; S32.402A Unspecified fracture of left acetabulum, initial encounter for closed fracture; K21.9 Gastro-esophageal reflux disease without esophagitis; N40.1 Benign prostatic hyperplasia with lower urinary tract symptoms; E11.9 Type 2 diabetes mellitus without complications; E03.9 Hypothyroidism, unspecified; Z68.35 Body mass index [BMI] 35.0-35.9, adult; E78.00 Pure hypercholesterolemia, unspecified; I10 Essential (primary) hypertension; G47.33 Obstructive sleep apnea (adult) (pediatric); S32.10XA Unspecified fracture of sacrum, initial encounter for closed fracture; W11.XXXA Fall on and from ladder, initial encounter; Z87.891 Personal history of nicotine dependence; S01.01XA Laceration without foreign body of scalp, initial encounter